=== PATIENT | female | born 1975 | race African-American/Black ===

== ENCOUNTER 2016-07-28 18:43 | Emergency (ER) | payer OTHER ==
[2016-07-28] MEDS ORDERED: Lidocaine 1% w/Epinephrine 1:100K 20 ML VIAL ONE (20:13)
--- NOTE | 2016-07-28 21:02 | ERRECORD ---
[facility] EMERGENCY RECORD HPI ABSCESS (22:31 JOHE) CHIEF COMPLAINT: Patient presents for evaluation of swelling, Patient presents for evaluation of pain. HISTORIAN: History provided by patient, Pt. reports left chest wall (near axilla) swelling/abscess that has developed and become more painful over last 2 days. Also reports left ear pain and drainage over past week. No F&C, N&V, headache, vision changes, CP or other symptoms. Reports BP elevated because she is in pain. LOCATION: Symptoms are localized, most severe to left chest wall. QUALITY: Pain is dull in nature, described as throbbing. SEVERITY: Maximum severity of symptoms moderate, Currently symptoms are moderate. TIME COURSE: Gradual onset of symptoms, 2, days priror to arrival, Symptoms are worsening, are constant. ASSOCIATED WITH: No associated chills, No associated drainage, No associated fever, No associated nausea, No associated proximal streaking, No associated warmth, Denies any other complaints. COMPLICATING FACTORS: Complicating factors for wound healing include:, patient with history of diabetes. EXACERBATED BY: Patient's condition exacerbated by nothing. RELIEVED BY: Patient's condition relieved by nothing because patient has not tried anything for relief. TETANUS: Tetanus status up to date. ROS (22:33 JOHE) CONSTITUTIONAL: Historian denies chills, denies fever, denies malaise. EYES: Historian denies eye pain, denies eye redness, denies photophobia, denies vision changes. ENT: Historian reports otalgia, reports otorrhea, denies rhinorrhea, denies sinus pain, denies sore throat, denies voice changes. CARDIOVASCULAR: Historian denies chest pain, denies diaphoresis, denies dyspnea on exertion, denies syncope, denies palpitations. RESPIRATORY: Historian denies cough, denies shortness of breath, denies wheezing. GI: Historian denies abdominal pain, denies nausea, denies vomiting. GENITOURINARY FEMALE: Historian denies dysuria, denies frequency, denies hematuria. MUSCULOSKELETAL: Historian denies arthralgias, denies back pain, denies myalgias, denies neck pain. SKIN: Historian reports skin lesions. NEUROLOGIC: Historian denies confusion, denies dizziness, denies focal weakness, denies gait changes, denies headache, denies paresthesias. HEMO/LYMPHATIC: Historian denies abnormal blood clotting, denies easy bruising, denies petechiae. NOTES: All systems reviewed, negative except as described above. &a-1R&a+25V*p+0X*g1896J*c202B*c15G*c2P*p-0X&a-25V&a+1R Name: Rose Mary Jain : 1975 F41 MedRec: [id number] AcctNum: [id number] Prepared: SunJul 28, 2016 22:43 by Interface Page 1 of 4 pMD [facility] EMERGENCY RECORD PAST MEDICAL HISTORY (18:50 EPIE) MEDICAL HISTORY: Past medical history includes history of obesity, includes cardiac history, unspecified arrhythmia, includes history of diabetes, Type II, includes history of hypertension. FEMALE SURGICAL HISTORY: Surgical history of hysterectomy, Date of surgery 10/27/2015, Surgical history of section. PSYCHIATRIC HISTORY: No previous psychiatric history. SOCIAL HISTORY: Patient denies alcohol use, Patient denies drug use, Patient has no smoking history,. KNOWN ALLERGIES No Known Drug Allergies CURRENT MEDICATIONS (18:49 EPIE) metFORMIN: TABLET : Strength - 500 mg : ORAL Patient Dose: Oral once a day.unknown dose. meTOPROLOL tartrate: TABLET : Strength - 100 mg : ORAL Patient Dose: Oral once a day (in the morning).unknown dose. lisinopril-hydrochlorothiazide: TABLET : Strength - 10 mg-12.5 mg : ORAL Patient Dose: Oral once a day (in the morning).unknown dose. VITAL SIGNS VITAL SIGNS: Pulse: 83, Resp: 20 (Non-Labored), Temp: 99.8 (Oral), Pain: 6, O2 sat: 97 on Room Air, Time: 07/28/2016 18:47. (18:47 EPIE) BP: 210/124, Time: 07/28/2016 18:50. (18:50 EPIE) BP: 174/104, Pulse: 69, Resp: 18 (Non-Labored), O2 sat: 98 on Room Air, Time: 07/28/2016 19:36. (19:36 EPIE) BP: 168/98, Pulse: 68, Resp: 18 (Non-Labored), Temp: 99.6 (Oral), Pain: 4, O2 sat: 97 on Room Air, Time: 07/28/2016 20:40. (20:40 EPIE) PHYSICAL EXAM (22:34 JOHE) CONSTITUTIONAL: Vital signs reviewed, Patient appears non toxic, Patient alert and oriented to person, place and time. HEAD: Head exam normal, Head exam included findings of head atraumatic, normocephalic. EYES: Eye exam normal, Eye exam included findings of eyelids normal to inspection, Pupils equally round and reactive to light, Extraocular muscles intact, Conjunctiva normal. ENT: Pharynx exam normal, not injected, no swelling, symmetrical, Uvula exam normal, midline, no edema, Mouth exam normal, mucous membranes moist, no drooling, no lesions, no lacerations, no tongue elevation, RIght ear canal and TM normal, left ear canal swollen and edematous, TM obscured due to swelling. No mastoid swelling or &a-1R&a+25V*p+0X*v5337K*c202B*c15G*c2P*p-0X&a-25V&a+1R Name: Rose Mary Jain : 1975 F41 MedRec: [id number] AcctNum: [id number] Prepared: SunJul 28, 2016 22:43 by Interface Page 2 of 4 pMD [facility] EMERGENCY RECORD tenderness. NECK: Neck exam normal, Neck exam included findings of normal range of motion, Trachea midline, no carotid bruits. RESPIRATORY CHEST: Respiratory exam included findings of no respiratory distress, Breath sounds clear, No wheezing, No rales, No rhonchi, Breath sounds not absent, Breath sounds not diminished. CARDIOVASCULAR: Cardiovascular assessment normal, Cardiovascular exam included findings of heart rate regular rate and rhythm, Heart sounds normal, Carotids normal, Pedal pulses normal. ABDOMEN FEMALE: Abdominal exam normal, Abdominal exam included findings of abdomen nontender, no distension, no pulsatile masses, no peritoneal signs, no rigidity, no guarding, no rebound. NEURO: Neuro exam normal, [place] coma scale 15, Neuro exam findings include patient oriented to person, place and time, Speech normal, Gait normal, Cranial nerves intact, no focal motor deficits, no focal sensory deficits. SKIN: Skin exam included findings of skin warm, dry, and normal in color, Patient has a 6X3 cm area of fluctuance and tenderness without overlying erythema or warmth on the left gerson-lateral chest wall near the axilla. DOCTOR NOTES (22:36 JOHE) TEXT: Note: chart completed after patient discharge. I&D performed with large amount of serosanguinous fluid obtained. Cavity probed afterwards, and packed with 1/4 inch iodoform. No active bleeding noted afterwards. BP improved. Discussed treatment for abscess and otitis externa, need to take packing out within 48 hours. Discussed need to take BP medications and f/u with PCP closely to recheck BP, and discussed warning signs for immediate return to ED. PROBLEM LIST No recorded problems DIAGNOSIS (20:34 JOHE) FINAL: PRIMARY: abscess of chest wall, ADDITIONAL: left otitis externa. PRESCRIPTION clindamycin HCl: CAPSULE : 300 mg : ORAL : Quantity: 1 Unit: cap(s) Route: ORAL Schedule: 3 times a day Dispense: 21 Unit: cap(s) May substitute. Refills: No Refills . (20:35 JOHE) NOTES: No Refills. (20:35 JOHE) Ciprodex: SUSPENSION, DROPS(FINAL DOSAGE FORM)(ML) : 0.3 %-0.1 % : OTIC : Quantity: 4 Unit: Drps Route: OTIC Schedule: 2 times a day Dispense: 1 Unit: Tube May substitute. Refills: No Refills . (20:36 JOHE) NOTES: 4 drops to left ear twice daily X 7 days No Refills. (20:36 JOHE) &a-1R&a+25V*p+0X*k1960Q*c202B*c15G*c2P*p-0X&a-25V&a+1R Name: Rose Mary Jain Fabiola : 1975 F41 MedRec: [id number] AcctNum: [id number] Prepared: SunJul 28, 2016 22:43 by Interface Page 3 of 4 pMD [facility] EMERGENCY RECORD acetaminophen-codeine: TABLET : 300 mg-30 mg : ORAL : Quantity: 1 Unit: tab(s) Route: ORAL Schedule: every 4 hours prn Dispense: 15 Unit: tab(s) May substitute. Refills: No Refills . (20:37 NOEL) NOTES: No Refills. (20:37 NOEL) DISPOSITION PATIENT: Disposition Type: Discharge, Disposition: *Discharge Home, Condition: Good. (20:37 JANESSAE) Patient left the department. (20:54 EPIE) Marroquin: SANYA=JESSICA Dela Cruz, Key COHEN=MD Woo, Saman &a-1R&a+25V*p+0X*g1899I*c202B*c15G*c2P*p-0X&a-25V&a+1R Name: Rose Mary Jain : 1975 F41 MedRec: [id number] AcctNum: [id number] Prepared: SunJul 28, 2016 22:43 by Interface Page 4 of 4 pMD MTDD
--- NOTE | 2016-07-28 21:08 | PICIS ---
[facility] EMERGENCY RECORD TRIAGE (SunJul 28, 2016 18:49 EPIE) TRIAGE NOTES: Pt reports abscess to left axilla she noticed on Sunday. Reports no drainage. (SunJul 28, 2016 18:49 EPIE) PATIENT: NAME: Rose Mary Jain, AGE: 41, GENDER: female, : Sun1975, TIME OF GREET: SunJul 28, 2016 18:44, PREFERRED LANGUAGE: [place]i, ETHNICITY: Not or , ECODE BILLING MAP: [facility], SSN: [id number], Zip Code: [address], KG WEIGHT: [phone], PHONE: , , , PERSON ID: [id number], PCP: Kathie, Clinic. (SunJul 28, 2016 18:49 EPIE) COMPLAINT: ABSCESS. (SunJul 28, 2016 18:49 EPIE) ADMISSION: URGENCY: 4 Non Urgent, ADMISSION SOURCE: Home, TRANSPORT: CAR, BED: TRIAGE. (SunJul 28, 2016 18:49 EPIE) TRIAGE SCREENING: Patient denies suicidal ideation, Patient denies presence of domestic violence. (18:50 EPIE) TREATMENTS IN PROGRESS: Treatments given Prehospital: none. (18:50 EPIE) PROVIDERS: TRIAGE NURSE: Key Dela Cruz RN. (SunJul 28, 2016 18:49 EPIE) VITAL SIGNS: Pulse 83, Resp 20, (Non-Labored), Temp 99.8, (Oral), Pain 6, O2 Sat 97, on Room Air, Time 07/28/2016 18:47. (18:47 EPIE) PREVIOUS VISIT ALLERGIES: No Known Drug Allergies. (SunJul 28, 2016 18:49 EPIE) No Known Drug Allergies. (18:50 EPIE) KNOWN ALLERGIES No Known Drug Allergies CURRENT MEDICATIONS (18:49 EPIE) metFORMIN: TABLET : Strength - 500 mg : ORAL Patient Dose: Oral once a day.unknown dose. meTOPROLOL tartrate: TABLET : Strength - 100 mg : ORAL Patient Dose: Oral once a day (in the morning).unknown dose. lisinopril-hydrochlorothiazide: TABLET : Strength - 10 mg-12.5 mg : ORAL Patient Dose: Oral once a day (in the morning).unknown dose. VITAL SIGNS VITAL SIGNS: Pulse: 83, Resp: 20 (Non-Labored), Temp: 99.8 (Oral), Pain: 6, O2 sat: 97 on Room Air, Time: 07/28/2016 18:47. (18:47 EPIE) BP: 210/124, Time: 07/28/2016 18:50. (18:50 EPIE) BP: 174/104, Pulse: 69, Resp: 18 (Non-Labored), O2 sat: 98 on Room Air, Time: 07/28/2016 19:36. (19:36 EPIE) BP: 168/98, Pulse: 68, Resp: 18 (Non-Labored), Temp: 99.6 (Oral), Pain: 4, O2 sat: 97 on Room Air, Time: 07/28/2016 20:40. (20:40 EPIE) &a-1R&a+25V*p+0X*f9937Q*c202B*c15G*c2P*p-0X&a-25V&a+1R Name: Rose Mary Jain : 1975 F41 MedRec: [id number] AcctNum: [id number] Prepared: SunJul 28, 2016 22:49 by Interface Page 1 of 6 pMD [facility] EMERGENCY RECORD NURSING ASSESSMENT: SKIN (19:35 EPIE) CONSTITUTIONAL: Patient arrives ambulatory, Gait steady, History obtained from patient, Patient appears comfortable, Patient cooperative, Patient alert, Oriented to person, place and time, Skin warm, Skin dry, Skin normal in color, Mucous membranes pink, Mucous membranes moist, Patient is well-groomed, Pt reports abscess to left axilla she noticed on Sunday. Reports no drainage. PAIN: throbbing pain, left axilla, Onset of pain 07/25/2016 19:35, constant, on a scale 0-10 patient rates pain as 6. SKIN: Skin assessment findings include skin warm, Skin dry, Skin normal in color, Notes: Pt has abscess to left axilla no drainage. 3cm by 3cm will slight redness. NURSING PROCEDURE: DISCHARGE NOTE (20:45 EPIE) DISCHARGE: Patient discharged to home, ambulating without assistance, driving self, unaccompanied, Summary of Care printed/ provided, Discharge instructions given to patient, Simple or moderate discharge teaching performed, Prescriptions given and instructions on side effects given, Name of prescription(s) given: clindamycin, ciprodex, acetaminophen-codeine, Above person(s) verbalized understanding of discharge instructions and follow-up care. BELONGINGS: Belongings and valuables with patient upon arrival to the Emergency Department include:, Belongings and valuables with patient at time of discharge include:, Belongings remain with patient, Valuables remain with patient. NURSING PROCEDURE: INCISION AND DRAINAGE (20:20 EPIE) PATIENT IDENTIFIER: Patient actively involved in identification process, Patient's identity verified by patient stating name, Patient's identity verified by hospital ID bracelet. TIMEOUT: Prior to procedure, correct patient verified by, patient stating name, patient stating date, hospital identification bracelet, Correct procedure verified, Correct site verified, Correct equipment utilized, Physician performing procedure Dr. Woo GALLO, Witnessed by Key LOPEZ. I & D: Incision and drainage performed to the left axilla, by Dr. Woo GALLO, small amount, of purulent fluid drained, Simple dressing applied, using telfa pad, packed with 1/4 inch iodoform packing, Last tetanus shot received less than 5 years ago, Notes: wound packed with 1/4 idodoform. ORDER DETAILS Order Name: chart element #1, Status: Active, Time: 20:20 07/28/2016, User: System, - Ordered for: MD Woo, Saman, - Entered by: JESSICA Dela Cruz Emily - SunJul 28, 2016 20:20, &a-1R&a+25V*p+0X*c7509A*c202B*c15G*c2P*p-0X&a-25V&a+1R Name: Rose Mary Jain : 1975 F41 MedRec: [id number] AcctNum: [id number] Prepared: SunJul 28, 2016 22:49 by Interface Page 2 of 6 pMD [facility] EMERGENCY RECORD - Quantity: 1, Order Name: chart element #4, Status: Active, Time: 20:20 07/28/2016, User: System, - Ordered for: MD Woo, Saman, - Entered by: JESSICA Dela Cruz Key - SunJul 28, 2016 20:20, - Quantity: 1. HPI ABSCESS (22:31 [facility]) CHIEF COMPLAINT: Patient presents for evaluation of swelling, Patient presents for evaluation of pain. HISTORIAN: History provided by patient, Pt. reports left chest wall (near axilla) swelling/abscess that has developed and become more painful over last 2 days. Also reports left ear pain and drainage over past week. No F&C, N&V, headache, vision changes, CP or other symptoms. Reports BP elevated because she is in pain. LOCATION: Symptoms are localized, most severe to left chest wall. QUALITY: Pain is dull in nature, described as throbbing. SEVERITY: Maximum severity of symptoms moderate, Currently symptoms are moderate. TIME COURSE: Gradual onset of symptoms, 2, days priror to arrival, Symptoms are worsening, are constant. ASSOCIATED WITH: No associated chills, No associated drainage, No associated fever, No associated nausea, No associated proximal streaking, No associated warmth, Denies any other complaints. COMPLICATING FACTORS: Complicating factors for wound healing include:, patient with history of diabetes. EXACERBATED BY: Patient's condition exacerbated by nothing. RELIEVED BY: Patient's condition relieved by nothing because patient has not tried anything for relief. TETANUS: Tetanus status up to date. ROS (22:33 [facility]) CONSTITUTIONAL: Historian denies chills, denies fever, denies malaise. EYES: Historian denies eye pain, denies eye redness, denies photophobia, denies vision changes. ENT: Historian reports otalgia, reports otorrhea, denies rhinorrhea, denies sinus pain, denies sore throat, denies voice changes. CARDIOVASCULAR: Historian denies chest pain, denies diaphoresis, denies dyspnea on exertion, denies syncope, denies palpitations. RESPIRATORY: Historian denies cough, denies shortness of breath, denies wheezing. GI: Historian denies abdominal pain, denies nausea, denies vomiting. GENITOURINARY FEMALE: Historian denies dysuria, denies frequency, denies hematuria. MUSCULOSKELETAL: Historian denies arthralgias, denies back pain, denies myalgias, denies neck pain. &a-1R&a+25V*p+0X*x8839Q*c202B*c15G*c2P*p-0X&a-25V&a+1R Name: Rose Mary Jain : 1975 F41 MedRec: [id number] AcctNum: [id number] Prepared: SunJul 28, 2016 22:49 by Interface Page 3 of 6 pMD [facility] EMERGENCY RECORD SKIN: Historian reports skin lesions. NEUROLOGIC: Historian denies confusion, denies dizziness, denies focal weakness, denies gait changes, denies headache, denies paresthesias. HEMO/LYMPHATIC: Historian denies abnormal blood clotting, denies easy bruising, denies petechiae. NOTES: All systems reviewed, negative except as described above. PAST MEDICAL HISTORY (18:50 EPIE) MEDICAL HISTORY: Past medical history includes history of obesity, includes cardiac history, unspecified arrhythmia, includes history of diabetes, Type II, includes history of hypertension. FEMALE SURGICAL HISTORY: Surgical history of hysterectomy, Date of surgery 10/27/2015, Surgical history of section. PSYCHIATRIC HISTORY: No previous psychiatric history. SOCIAL HISTORY: Patient denies alcohol use, Patient denies drug use, Patient has no smoking history,. PHYSICAL EXAM (22:34 JOHE) CONSTITUTIONAL: Vital signs reviewed, Patient appears non toxic, Patient alert and oriented to person, place and time. HEAD: Head exam normal, Head exam included findings of head atraumatic, normocephalic. EYES: Eye exam normal, Eye exam included findings of eyelids normal to inspection, Pupils equally round and reactive to light, Extraocular muscles intact, Conjunctiva normal. ENT: Pharynx exam normal, not injected, no swelling, symmetrical, Uvula exam normal, midline, no edema, Mouth exam normal, mucous membranes moist, no drooling, no lesions, no lacerations, no tongue elevation, RIght ear canal and TM normal, left ear canal swollen and edematous, TM obscured due to swelling. No mastoid swelling or tenderness. NECK: Neck exam normal, Neck exam included findings of normal range of motion, Trachea midline, no carotid bruits. RESPIRATORY CHEST: Respiratory exam included findings of no respiratory distress, Breath sounds clear, No wheezing, No rales, No rhonchi, Breath sounds not absent, Breath sounds not diminished. CARDIOVASCULAR: Cardiovascular assessment normal, Cardiovascular exam included findings of heart rate regular rate and rhythm, Heart sounds normal, Carotids normal, Pedal pulses normal. ABDOMEN FEMALE: Abdominal exam normal, Abdominal exam included findings of abdomen nontender, no distension, no pulsatile masses, no peritoneal signs, no rigidity, no guarding, no rebound. NEURO: Neuro exam normal, [place] coma scale 15, Neuro exam findings include patient oriented to person, place and time, Speech normal, Gait normal, Cranial nerves intact, no focal motor deficits, no focal sensory deficits. SKIN: Skin exam included findings of skin warm, dry, and normal in color, Patient has a 6X3 cm area of fluctuance and tenderness without overlying erythema or warmth on the left gerson-lateral chest &a-1R&a+25V*p+0X*y3208G*c202B*c15G*c2P*p-0X&a-25V&a+1R Name: Rose Mary Jain : 1975 F41 MedRec: [id number] AcctNum: [id number] Prepared: SunJul 28, 2016 22:49 by Interface Page 4 of 6 pMD [facility] EMERGENCY RECORD wall near the axilla. EVENTS TRANSFER: Triage to Emergency Triage. (SunJul 28, 2016 18:49 EPIE) Emergency Triage to Emergency Room -05. (18:49 EPIE) Removed from Emergency Emergency Room -05. (20:54 EPIE) DOCTOR NOTES (22:36 JOHE) TEXT: Note: chart completed after patient discharge. I&D performed with large amount of serosanguinous fluid obtained. Cavity probed afterwards, and packed with 1/4 inch iodoform. No active bleeding noted afterwards. BP improved. Discussed treatment for abscess and otitis externa, need to take packing out within 48 hours. Discussed need to take BP medications and f/u with PCP closely to recheck BP, and discussed warning signs for immediate return to ED. INCISION AND DRAINAGE (20:33 JOHE) TIMEOUT: Side and/or site verified, Patient identification confirmed, Sterile procedures observed. INCISION AND DRAINAGE: Side and/or site verified, Patient identification confirmed, Sterile procedures observed, Verbal consent obtained, Incision and drainage indicated for cutaneous abscess, There are no contraindications, 1% Lidocaine with epinephrine used, 6 mLs, Incision and drainage of skin abscess, Location: left chest wall, simple, Incision was made over area of fluctuance, Explored for loculations, Packed with sterile gauze, Drained serosanguinous, Amount (mLs) 20, After procedure, wound dressed, After procedure, neurovascular status normal, There were no complications, Tetanus status up to date, Patient tolerated the procedure well. PROBLEM LIST No recorded problems DIAGNOSIS (20:34 JOHE) FINAL: PRIMARY: abscess of chest wall, ADDITIONAL: left otitis externa. DISPOSITION PATIENT: Disposition Type: Discharge, Disposition: *Discharge Home, Condition: Good. (20:37 JOHE) Patient left the department. (20:54 EPIE) INSTRUCTION (20:37 JOHE) DISCHARGE: ABSCESS, I AND D, OTITIS EXTERNA ADULT, HYPERTENSION, ESTABLISHED, OUT OF CONTROL. FOLLOWUP: Kathie, Clinic, Clinic, [address] [place] [id number], , Follow up with Primary Care Physician in 1-2 days. &a-1R&a+25V*p+0X*k9113F*c202B*c15G*c2P*p-0X&a-25V&a+1R Name: Rose Mary Jain : 1975 F41 MedRec: [id number] AcctNum: [id number] Prepared: SunJul 28, 2016 22:49 by Interface Page 5 of 6 pMD [facility] EMERGENCY RECORD SPECIAL: Follow-up with your PCP. PRESCRIPTION clindamycin HCl: CAPSULE : 300 mg : ORAL : Quantity: 1 Unit: cap(s) Route: ORAL Schedule: 3 times a day Dispense: 21 Unit: cap(s) May substitute. Refills: No Refills . (20:35 JOHE) NOTES: No Refills. (20:35 JOHE) Ciprodex: SUSPENSION, DROPS(FINAL DOSAGE FORM)(ML) : 0.3 %-0.1 % : OTIC : Quantity: 4 Unit: Drps Route: OTIC Schedule: 2 times a day Dispense: 1 Unit: Tube May substitute. Refills: No Refills . (20:36 JOHE) NOTES: 4 drops to left ear twice daily X 7 days No Refills. (20:36 JOHE) acetaminophen-codeine: TABLET : 300 mg-30 mg : ORAL : Quantity: 1 Unit: tab(s) Route: ORAL Schedule: every 4 hours prn Dispense: 15 Unit: tab(s) May substitute. Refills: No Refills . (20:37 JOHE) NOTES: No Refills. (20:37 JOHE) IMAGING (20:53 EPIE) *DISCHARGE INSTRUCTIONS RECEIPT: Image captured from scanner. Page 2 added. Image captured from scanner. *SUPPLY CHARGE SHEET: Image captured from scanner. ADMIN (22:38 NOEL) DIGITAL SIGNATURE: MD Woo, Saman. Marroquin: EPIE=JESSICA Dela Cruz, Key NOEL=MD Berkowitz John &a-1R&a+25V*p+0X*a8076S*c202B*c15G*c2P*p-0X&a-25V&a+1R Name: Rose Mary Jain : 1975 F41 MedRec: [id number] AcctNum: [id number] Prepared: SunJul 28, 2016 22:49 by Interface Page 6 of 6 pMD MTDD
== END 2016-07-28 20:45 | disposition home or self-care (01) ==
LOC: NAV ERS 18:43
DX: L02.213 Cutaneous abscess of chest wall (principal); H60.92 Unspecified otitis externa, left ear; E11.9 Type 2 diabetes mellitus without complications; I10 Essential (primary) hypertension; Z79.84 Long term (current) use of oral hypoglycemic drugs
CPT/HCPCS: 10060; J2001

== ENCOUNTER 2016-07-31 19:59 | Emergency (ER) | payer OTHER ==
--- NOTE | 2016-07-31 20:43 | PICIS ---
[facility] EMERGENCY RECORD TRIAGE (SunJul 31, 2016 20:08 [facility]) TRIAGE NOTES: LEFT AXILLARY ABSCESS NEEDS TO BE REPACKED. I&D PERFORMED SUNDAY IN ED. (SunJul 31, 2016 20:08 [facility]) PATIENT: NAME: Rose Mary Jain, AGE: 41, GENDER: female, : Sun1975, TIME OF GREET: SunJul 31, 2016 20:00, PREFERRED LANGUAGE: [place], ETHNICITY: Not or , ECODE BILLING MAP: [facility] ER, SSN: [id number], Zip Code: [address], KG WEIGHT: 170.1 (est.), PHONE: , , , PERSON ID: [id number], PCP: TARYN . (SunJul 31, 2016 20:08 [facility]) COMPLAINT: WOUND CARE. (SunJul 31, 2016 20:08 [facility]) ADMISSION: URGENCY: 5 Fast Track, ADMISSION SOURCE: Home, TRANSPORT: CAR, BED: ER -05. (SunJul 31, 2016 20:08 [facility]) IMMUNIZATIONS: Flu vaccine not up to date, Tetanus immunization up to date, Pneumococcal vaccine not up to date. (20:09 [facility]) SIRS SCORING: Heart Rate 55-109 (0), Temp range 96.8-101.1 (0), respiratory rate 12-24 (0), Mental Status altered: no (0). (20:09 [facility]) TRIAGE SCREENING: Patient denies suicidal ideation, Patient denies presence of domestic violence. (20:09 [facility]) TREATMENTS IN PROGRESS: Treatments given Prehospital: NONE. (20:09 [facility]) PROVIDERS: TRIAGE NURSE: Penny Jj RN. (SunJul 31, 2016 20:08 [facility]) VITAL SIGNS: BP 172/112, Pulse 76, Resp 20, Temp 97.8, (Oral), Pain 6, O2 Sat 96, on Room Air, Time 07/31/2016 20:06. (20:06 [facility]) PREVIOUS VISIT ALLERGIES: No Known Drug Allergies. (SunJul 31, 2016 20:08 [facility]) No Known Drug Allergies. (20:09 [facility]) KNOWN ALLERGIES No Known Drug Allergies CURRENT MEDICATIONS (20:08 [facility]) metFORMIN: TABLET : Strength - 500 mg : ORAL Patient Dose: Oral once a day.unknown dose. meTOPROLOL tartrate: TABLET : Strength - 100 mg : ORAL Patient Dose: Oral once a day (in the morning).unknown dose. lisinopril-hydrochlorothiazide: TABLET : Strength - 10 mg-12.5 mg : ORAL Patient Dose: Oral once a day (in the morning).unknown dose. clindamycin HCl: CAPSULE : Strength - 300 mg : ORAL Patient Dose: 1 cap(s) Oral 3 times a day. Ciprodex: &a-1R&a+25V*p+0X*q0583L*c202B*c15G*c2P*p-0X&a-25V&a+1R Name: Rose Mary Jain : 1975 F41 MedRec: [id number] AcctNum: [id number] Prepared: SunJul 31, 2016 20:41 by Interface Page [address] [facility] EMERGENCY RECORD SUSPENSION, DROPS(FINAL DOSAGE FORM)(ML) : Strength - 0.3 %-0.1 % : OTIC Patient Dose: 4 Drps OTIC 2 times a day. acetaminophen-codeine: TABLET : Strength - 300 mg-30 mg : ORAL Patient Dose: 1 tab(s) Oral every 4 hours prn. VITAL SIGNS (20:06 [facility]) VITAL SIGNS: BP: 172/112, Pulse: 76, Resp: 20, Temp: 97.8 (Oral), Pain: 6, O2 sat: 96 on Room Air, Time: 07/31/2016 20:06. NURSING ASSESSMENT: SKIN (20:10 [facility]) CONSTITUTIONAL: Complex assessment performed, Patient arrives ambulatory, Gait steady, History obtained from patient, Patient appears comfortable, Patient cooperative, Patient alert, Oriented to person, place and time, Skin warm, Skin dry, Skin normal in color, Mucous membranes pink, Mucous membranes moist, Patient is well-groomed, Patient complains of ABSCESS REPACKING. PAIN: LEFT AXILLARY, on a scale 0-10 patient rates pain as 6. SKIN: Skin assessment findings include skin warm, Skin dry, Skin normal in color, Notes: ABSCESS TO LEFT AXILLARY. PACKING STRIPS IN PLACE THAT NEEDS TO BE CHANGED. SLIGHT SWELLING AND TENDERNESS. NURSING PROCEDURE: DISCHARGE NOTE (20:30 [facility]) DISCHARGE: Patient discharged to home, ambulating without assistance, driving self, unaccompanied, Summary of Care printed/ provided, Discharge instructions given to patient, Simple or moderate discharge teaching performed, by JESSICA Francis, CONTINUE TAKING ANTIBIOTICS AND DAILY HOME MEDS. FOLLOW UP WITH PCP OR IN ED FOR WOUND REPACKING IN THE NEXT FEW DAYS., Above person(s) verbalized understanding of discharge instructions and follow-up care. BELONGINGS: Belongings and valuables with patient upon arrival to the Emergency Department include:, Belongings and valuables with patient at time of discharge include:, Belongings remain with patient, Valuables remain with patient. HPI WOUND CHECK (20:24 [facility]) CHIEF COMPLAINT: Patient presents for evaluation of chest wound, abscess, closed with nothing, Wound is 3 days old, Patient presents for evaluation of Pt with I&D breast abscess 3 days ago. Here for packing removal. Still with drainage but less pain and swelling. No fever or nausea. HISTORIAN: History provided by patient. LOCATION: Symptoms are localized. TIME COURSE: Symptoms are improving. ASSOCIATED WITH: No associated chills, Associated with drainage, No associated fever, No associated proximal streaking, No associated redness. &a-1R&a+25V*p+0X*e0800L*c202B*c15G*c2P*p-0X&a-25V&a+1R Name: Rose Mary Jain : 1975 F41 MedRec: [id number] AcctNum: [id number] Prepared: SunJul 31, 2016 20:41 by Interface Page [address] [facility] EMERGENCY RECORD EXACERBATED BY: Patient's condition exacerbated by nothing. RELIEVED BY: Patient's condition relieved by prescription medications, Clindamycin. ROS (20:25 [facility]) CONSTITUTIONAL: Historian denies chills, denies fever. GI: Historian denies nausea, denies vomiting. SKIN: abscess s/p I&D. PAST MEDICAL HISTORY MEDICAL HISTORY: Past medical history includes history of obesity, includes cardiac history, unspecified arrhythmia, includes history of diabetes, Type II, includes history of hypertension. (20:09 [facility]) FEMALE SURGICAL HISTORY: Surgical history of hysterectomy, Date of surgery 10/27/2015, Surgical history of section. (20:09 [facility]) PSYCHIATRIC HISTORY: No previous psychiatric history. (20:09 [facility]) SOCIAL HISTORY: Patient denies alcohol use, Patient denies drug use, Patient has no smoking history,. (20:09 [facility]) NOTES: Nursing records reviewed, Agree with nursing records. (20:26 [facility]) PHYSICAL EXAM (20:25 [facility]) CONSTITUTIONAL: Vital signs reviewed, Patient appears non toxic, Patient alert and oriented to person, place and time. EYES: Eye exam included findings of eyelids normal to inspection, Pupils equally round and reactive to light, Conjunctiva normal. RESPIRATORY CHEST: Respiratory exam included findings of no respiratory distress, Chest exam included findings of chest movement symmetrical. NEURO: [place] coma scale 15, Neuro exam findings include patient oriented to person, place and time, Speech normal. SKIN: Skin exam included findings of skin warm, dry, and normal in color, Abscess with small purulent drainage, packing in place, minimal swelling, minimal tenderness, no warmth. PSYCHIATRIC: Normal affect. EVENTS TRANSFER: Triage to Emergency Emergency Room -05. (SunJul 31, 2016 20:08 [facility]) Removed from Emergency Emergency Room -05. (20:33 [facility]) WOUND CHECK (20:27 [facility]) WOUND CHECK: Side and/or site verified, Patient identification confirmed, Sterile procedures observed, Verbal consent obtained, Wound check indicated for scheduled evaluation, Wound check to abscess performed, to chest, Wound not closed, Wound age 3 days, Purulent drainage present, Patient tolerated the procedure &a-1R&a+25V*p+0X*r0255O*c202B*c15G*c2P*p-0X&a-25V&a+1R Name: Rose Mary Jain Fabiola : 1975 F41 MedRec: [id number] AcctNum: [id number] Prepared: SunJul 31, 2016 20:41 by Interface Page [address] [facility] EMERGENCY RECORD well, Re-packed with minimal discomfort. Instructions given. PROBLEM LIST No recorded problems DIAGNOSIS (20:23 [facility]) FINAL: PRIMARY: INDURATION OF BREAST. DISPOSITION PATIENT: Disposition Type: Discharge, Disposition: *Discharge Home. (20:23 [facility]) Patient left the department. (20:33 [facility]) INSTRUCTION (20:23 [facility]) DISCHARGE: ABSCESS, I AND D. FOLLOWUP: Follow up with Primary Care Physician in 2-3 days. PRESCRIPTION No recorded prescriptions ADMIN (20:27 [facility]) DIGITAL SIGNATURE: MD Reyna Joshua. Marroquin: [facility]=MD Reyna Joshua [facility]=JESSICA Jj, Penny &a-1R&a+25V*p+0X*[id number]*c202B*c15G*c2P*p-0X&a-25V&a+1R Name: Rose Mary Jain : 1975 F41 MedRec: [id number] AcctNum: [id number] Prepared: SunJul 31, 2016 20:41 by Interface Page [address] [facility] MEDICATION RECONCILIATION You were seen in the Emergency Department on: SunJul 31, 2016 KNOWN ALLERGIES No Known Drug Allergies HOME MEDICATIONS CONTINUE PRESCRIBED acetaminophen-codeine : TABLET : Strength - 300 mg-30 mg : ORAL Continue as prescribed Patient had been takin tab(s) Oral every 4 hours prn. Ciprodex : SUSPENSION, DROPS(FINAL DOSAGE FORM)(ML) : Strength - 0.3 %-0.1 % : OTIC Continue as prescribed Patient had been takin Drps OTIC 2 times a day. clindamycin HCl : CAPSULE : Strength - 300 mg : ORAL Continue as prescribed Patient had been takin cap(s) Oral 3 times a day. lisinopril-hydrochlorothiazide : TABLET : Strength - 10 mg-12.5 mg : ORAL Continue as prescribed Patient had been taking: Oral once a day (in the morning). Comment: unknown dose. metFORMIN : TABLET : Strength - 500 mg : ORAL Continue as prescribed Patient had been taking: Oral once a day. Comment: unknown dose. meTOPROLOL tartrate : TABLET : Strength - 100 mg : ORAL Continue as prescribed Patient had been taking: Oral once a day (in the morning). Comment: unknown dose. &a-1R&a+25V*p+0X*m0153N*c202B*c15G*c2P*p-0X&a-25V&a+1R Name: Rose Mary Jain : 1975 F41 MedRec: [id number] AcctNum: [id number] Prepared: SunJul 31, 2016 20:41 by Interface Kelly ROUSSEAU
--- NOTE | 2016-07-31 20:43 | ERRECORD ---
[facility] EMERGENCY RECORD HPI WOUND CHECK (20:24 [facility]) CHIEF COMPLAINT: Patient presents for evaluation of chest wound, abscess, closed with nothing, Wound is 3 days old, Patient presents for evaluation of Pt with I&D breast abscess 3 days ago. Here for packing removal. Still with drainage but less pain and swelling. No fever or nausea. HISTORIAN: History provided by patient. LOCATION: Symptoms are localized. TIME COURSE: Symptoms are improving. ASSOCIATED WITH: No associated chills, Associated with drainage, No associated fever, No associated proximal streaking, No associated redness. EXACERBATED BY: Patient's condition exacerbated by nothing. RELIEVED BY: Patient's condition relieved by prescription medications, Clindamycin. ROS (20:25 [facility]) CONSTITUTIONAL: Historian denies chills, denies fever. GI: Historian denies nausea, denies vomiting. SKIN: abscess s/p I&D. PAST MEDICAL HISTORY MEDICAL HISTORY: Past medical history includes history of obesity, includes cardiac history, unspecified arrhythmia, includes history of diabetes, Type II, includes history of hypertension. (20:09 [facility]) FEMALE SURGICAL HISTORY: Surgical history of hysterectomy, Date of surgery 10/27/2015, Surgical history of section. (20:09 [facility]) PSYCHIATRIC HISTORY: No previous psychiatric history. (20:09 [facility]) SOCIAL HISTORY: Patient denies alcohol use, Patient denies drug use, Patient has no smoking history,. (20:09 [facility]) NOTES: Nursing records reviewed, Agree with nursing records. (20:26 [facility]) KNOWN ALLERGIES No Known Drug Allergies CURRENT MEDICATIONS (20:08 [facility]) metFORMIN: TABLET : Strength - 500 mg : ORAL Patient Dose: Oral once a day.unknown dose. meTOPROLOL tartrate: TABLET : Strength - 100 mg : ORAL Patient Dose: Oral once a day (in the morning).unknown dose. lisinopril-hydrochlorothiazide: TABLET : Strength - 10 mg-12.5 mg : ORAL Patient Dose: Oral once a day (in the morning).unknown dose. &a-1R&a+25V*p+0X*q5901V*c202B*c15G*c2P*p-0X&a-25V&a+1R Name: Rose Mary Jain : 1975 1 MedRec: [id number] AcctNum: [id number] Prepared: SunJul 31, 2016 20:41 by Interface Page 1 of 2 pMD [facility] EMERGENCY RECORD clindamycin HCl: CAPSULE : Strength - 300 mg : ORAL Patient Dose: 1 cap(s) Oral 3 times a day. Ciprodex: SUSPENSION, DROPS(FINAL DOSAGE FORM)(ML) : Strength - 0.3 %-0.1 % : OTIC Patient Dose: 4 Drps OTIC 2 times a day. acetaminophen-codeine: TABLET : Strength - 300 mg-30 mg : ORAL Patient Dose: 1 tab(s) Oral every 4 hours prn. VITAL SIGNS (20:06 [facility]) VITAL SIGNS: BP: 172/112, Pulse: 76, Resp: 20, Temp: 97.8 (Oral), Pain: 6, O2 sat: 96 on Room Air, Time: 07/31/2016 20:06. PHYSICAL EXAM (20:25 [facility]) CONSTITUTIONAL: Vital signs reviewed, Patient appears non toxic, Patient alert and oriented to person, place and time. EYES: Eye exam included findings of eyelids normal to inspection, Pupils equally round and reactive to light, Conjunctiva normal. RESPIRATORY CHEST: Respiratory exam included findings of no respiratory distress, Chest exam included findings of chest movement symmetrical. NEURO: [place] coma scale 15, Neuro exam findings include patient oriented to person, place and time, Speech normal. SKIN: Skin exam included findings of skin warm, dry, and normal in color, Abscess with small purulent drainage, packing in place, minimal swelling, minimal tenderness, no warmth. PSYCHIATRIC: Normal affect. PROBLEM LIST No recorded problems DIAGNOSIS (20:23 [facility]) FINAL: PRIMARY: INDURATION OF BREAST. PRESCRIPTION No recorded prescriptions DISPOSITION PATIENT: Disposition Type: Discharge, Disposition: *Discharge Home. (20:23 [facility]) Patient left the department. (20:33 [facility]) Marroquin: ENA=MD Axel, Mir [facility]=JESSICA Jj, Penny &gwen-1R&a+25V*p+0X*[id number]*c202B*c15G*c2P*p-0X&a-25V&a+1R Name: Rose Mary Jain Fabiola : 1975 1 MedRec: [id number] AcctNum: [id number] Prepared: Gregoria Jul 31, 2016 20:41 by Interface Page 2 of 2 pMD [facility]
== END 2016-07-31 20:30 | disposition home or self-care (01) ==
LOC: NAV ERS 19:59
DX: N64.51 Induration of breast (principal); I10 Essential (primary) hypertension; E11.9 Type 2 diabetes mellitus without complications; Z79.84 Long term (current) use of oral hypoglycemic drugs; Z79.2 Long term (current) use of antibiotics; Z79.899 Other long term (current) drug therapy
CPT/HCPCS: 99282

== ENCOUNTER 2016-08-03 16:27 | Emergency (ER) | payer OTHER | END 2016-08-03 16:57 | disposition home or self-care (01) | LOC: NAV ERS 16:27 | DX: L02.412 Cutaneous abscess of left axilla (principal); I10 Essential (primary) hypertension; E11.9 Type 2 diabetes mellitus without complications; Z79.84 Long term (current) use of oral hypoglycemic drugs; Z79.2 Long term (current) use of antibiotics; Z79.899 Other long term (current) drug therapy | CPT/HCPCS: 99282 ==

== ENCOUNTER 2016-08-07 19:56 | Emergency (ER) | payer OTHER ==
[2016-08-07] MEDS ORDERED: Bacitracin Zinc 1 Packet ONE (20:21)
== END 2016-08-07 20:29 | disposition home or self-care (01) ==
LOC: NAV ERS 19:56
DX: L02.412 Cutaneous abscess of left axilla (principal); I10 Essential (primary) hypertension; E11.9 Type 2 diabetes mellitus without complications; Z79.84 Long term (current) use of oral hypoglycemic drugs; Z79.2 Long term (current) use of antibiotics; Z79.899 Other long term (current) drug therapy
CPT/HCPCS: 99283

== ENCOUNTER 2017-03-08 04:21 | Emergency (ER) | payer OTHER ==
[2017-03-08] MEDS ORDERED: Ibuprofen 800 MG TAB ONE (04:39)
[2017-03-08] MEDS ORDERED: Cephalexin 250 MG CAP ONE (04:39)
== END 2017-03-08 05:10 | disposition home or self-care (01) ==
LOC: NAV ERS 04:21
DX: L02.422 Furuncle of left axilla (principal); L98.9 Disorder of the skin and subcutaneous tissue, unspecified; E66.9 Obesity, unspecified; E11.9 Type 2 diabetes mellitus without complications; Z79.84 Long term (current) use of oral hypoglycemic drugs; Z79.899 Other long term (current) drug therapy
CPT/HCPCS: 99283

== ENCOUNTER 2017-03-10 07:16 | Emergency (ER) | payer OTHER | END 2017-03-10 07:45 | disposition home or self-care (01) | LOC: NAV ERS 07:16 | DX: L02.412 Cutaneous abscess of left axilla (principal); E66.9 Obesity, unspecified; E11.9 Type 2 diabetes mellitus without complications; I10 Essential (primary) hypertension; I49.9 Cardiac arrhythmia, unspecified; Z79.899 Other long term (current) drug therapy; Z79.84 Long term (current) use of oral hypoglycemic drugs | CPT/HCPCS: 99282 ==

== ENCOUNTER 2017-03-13 18:14 | Emergency (ER) | payer OTHER | END 2017-03-13 18:43 | disposition home or self-care (01) | LOC: NAV ERS 18:14 | DX: L02.412 Cutaneous abscess of left axilla (principal); I10 Essential (primary) hypertension; E11.9 Type 2 diabetes mellitus without complications; Z79.84 Long term (current) use of oral hypoglycemic drugs; Z79.899 Other long term (current) drug therapy; Z79.2 Long term (current) use of antibiotics | CPT/HCPCS: 99282 ==

== ENCOUNTER 2017-06-04 12:24 | Emergency (ER) | payer OTHER ==
[2017-06-04] MEDS ORDERED: Ibuprofen 800 MG TAB ONE (12:51)
[2017-06-04] MEDS ORDERED: Oseltamivir 75 MG CAP ONE (13:22)
== END 2017-06-04 13:27 | disposition home or self-care (01) ==
LOC: NAV ERS 12:24
DX: J10.1 Influenza due to other identified influenza virus with other respiratory manifestations (principal); I49.9 Cardiac arrhythmia, unspecified; I10 Essential (primary) hypertension; E11.9 Type 2 diabetes mellitus without complications; Z79.84 Long term (current) use of oral hypoglycemic drugs; Z79.82 Long term (current) use of aspirin; Z79.899 Other long term (current) drug therapy
CPT/HCPCS: 99283

== ENCOUNTER 2017-09-22 06:40 | Emergency (ER) | payer OTHER ==
[2017-09-22] MEDS ORDERED: Lidocaine 1% 20 ML MDV ONE (07:14)
[2017-09-22] MEDS ORDERED: Cephalexin 250 MG CAP ONE (07:46)
== END 2017-09-22 07:49 | disposition home or self-care (01) ==
LOC: NAV ERS 06:40
DX: L02.11 Cutaneous abscess of neck (principal); I10 Essential (primary) hypertension; I49.9 Cardiac arrhythmia, unspecified; E66.9 Obesity, unspecified; E11.9 Type 2 diabetes mellitus without complications; Z79.82 Long term (current) use of aspirin; Z79.84 Long term (current) use of oral hypoglycemic drugs; Z79.899 Other long term (current) drug therapy
CPT/HCPCS: 10060; J2001

== ENCOUNTER 2017-09-24 13:49 | Emergency (ER) | payer OTHER | END 2017-09-24 14:33 | disposition home or self-care (01) | LOC: NAV ERS 13:49 | DX: Z48.817 Encounter for surgical aftercare following surgery on the skin and subcutaneous tissue (principal); I10 Essential (primary) hypertension; I49.9 Cardiac arrhythmia, unspecified; E11.9 Type 2 diabetes mellitus without complications; Z79.82 Long term (current) use of aspirin; Z79.84 Long term (current) use of oral hypoglycemic drugs; Z79.899 Other long term (current) drug therapy | CPT/HCPCS: 99282 ==

== ENCOUNTER 2017-09-27 20:42 | Emergency (ER) | payer OTHER | END 2017-09-27 21:06 | disposition home or self-care (01) | LOC: NAV ERS 20:42 | DX: Z48.817 Encounter for surgical aftercare following surgery on the skin and subcutaneous tissue (principal); I10 Essential (primary) hypertension; E11.9 Type 2 diabetes mellitus without complications; Z48.01 Encounter for change or removal of surgical wound dressing; Z79.84 Long term (current) use of oral hypoglycemic drugs; Z79.82 Long term (current) use of aspirin; Z79.899 Other long term (current) drug therapy | CPT/HCPCS: 99282 ==

== ENCOUNTER 2017-09-30 17:38 | Emergency (ER) | payer OTHER | END 2017-09-30 18:00 | disposition home or self-care (01) | LOC: NAV ERS 17:38 | DX: Z48.817 Encounter for surgical aftercare following surgery on the skin and subcutaneous tissue (principal); I10 Essential (primary) hypertension; E66.9 Obesity, unspecified; E11.9 Type 2 diabetes mellitus without complications; Z79.899 Other long term (current) drug therapy; Z79.84 Long term (current) use of oral hypoglycemic drugs; Z79.82 Long term (current) use of aspirin | CPT/HCPCS: 99282 ==

== ENCOUNTER 2017-11-30 16:24 | Emergency (ER) | payer OTHER ==
[2017-11-30] MEDS ORDERED: Lidocaine 1% 20 ML MDV ONE (16:34)
[2017-11-30] MEDS ORDERED: Sulfameth/Trimethoprim DS 800-160mg TAB ONE (16:36)
[2017-11-30] MEDS ORDERED: Cephalexin 250 MG CAP ONE (16:47)
== END 2017-11-30 16:57 | disposition home or self-care (01) ==
LOC: NAV ERS 16:24
DX: L02.11 Cutaneous abscess of neck (principal); I10 Essential (primary) hypertension; E11.9 Type 2 diabetes mellitus without complications; I49.9 Cardiac arrhythmia, unspecified; E66.9 Obesity, unspecified; Z79.899 Other long term (current) drug therapy; Z79.82 Long term (current) use of aspirin; Z79.84 Long term (current) use of oral hypoglycemic drugs
CPT/HCPCS: 10060; J2001

== ENCOUNTER 2017-12-02 15:13 | Emergency (ER) | payer OTHER | END 2017-12-02 15:33 | disposition home or self-care (01) | LOC: NAV ERS 15:13 | DX: Z48.817 Encounter for surgical aftercare following surgery on the skin and subcutaneous tissue (principal); Z48.01 Encounter for change or removal of surgical wound dressing; E11.9 Type 2 diabetes mellitus without complications; I10 Essential (primary) hypertension; I49.9 Cardiac arrhythmia, unspecified; Z79.84 Long term (current) use of oral hypoglycemic drugs; Z79.82 Long term (current) use of aspirin; Z79.899 Other long term (current) drug therapy | CPT/HCPCS: 99282 ==

== ENCOUNTER 2017-12-04 18:36 | Emergency (ER) | payer OTHER | END 2017-12-04 19:04 | disposition home or self-care (01) | LOC: NAV ERS 18:36 | DX: Z48.817 Encounter for surgical aftercare following surgery on the skin and subcutaneous tissue (principal); I10 Essential (primary) hypertension; E11.9 Type 2 diabetes mellitus without complications; Z79.899 Other long term (current) drug therapy; Z79.82 Long term (current) use of aspirin; Z79.84 Long term (current) use of oral hypoglycemic drugs | CPT/HCPCS: 99282 ==

== ENCOUNTER 2018-04-21 21:31 | Emergency (ER) | payer OTHER ==
[2018-04-21] MEDS ORDERED: Ondansetron PF 4 MG/2 ML Vial ONE (22:00)
[2018-04-21] MEDS ORDERED: Nitroglycerin 0.4 MG TAB (25 Tab Bottle) ONE (22:00)
[2018-04-21 22:19] LABS: Band 1 % (5-11); Eosinophils 2 % (0-10); Hemoglobin 14.4 g/dL (12.0-16.0); Lymphocytes 43 % (21-51); MDiff Complete? YES; Mean Corpuscular HGB CONC 30.9 g/dL (32.0-36.0); Mean Corpuscular Hemoglobin 26.3 pg (27.0-31.0); Mean Corpuscular Volume 85.2 fL (78.0-98.0); Mean Platelet Volume 8.6 fL (7.4-10.4); Monocytes 6 % (0-10); Neutrophil 48 % (42-75); PLT Morphology Comment Appears Adequate; Platelet Count 300 thou/uL (130-400); RBC Morphology Normal; Red Blood Cell (RBC) Count 5.47 mill/uL (4.20-5.40); White Blood Cell (WBC) Count 9.2 thou/uL (4.8-10.8)
[2018-04-21 22:20] LABS: CKMB 0.4 ng/mL (0-6.6); Troponin I Less than 0.010 ng/mL (< 0.028)
[2018-04-21 22:22] LABS: ALT (SGPT) 22 U/L (8-55); AST (SGOT) 16 U/L (5-34); Albumin 3.6 g/dL (3.5-5.0); Alkaline Phosphatase 95 U/L (40-150); Anion Gap 16 mmol/L (10-20); BUN (Urea Nitrogen) 8 mg/dL (7.0-18.7); Bilirubin, Total 0.3 mg/dL (0.2-1.2); Calc. Creatinine Clearance 0 mL/min (70-130); Calcium 9.8 mg/dL (7.8-10.44); Carbon Dioxide 27 mmol/L (22-29); Chloride 99 mmol/L (98-107); Estimated GFR-MDRD 90; Globulin 4.6 g/dL (2.4-3.5); Glucose 241 mg/dL (70-105); Lipase 59 U/L (8-78); Magnesium 2.2 mg/dL (1.6-2.6); Potassium 3.9 mmol/L (3.5-5.1); Protein, Total 8.2 g/dL (6.0-8.3); Sodium 138 mmol/L (136-145)
--- NOTE | 2018-04-21 22:38 | RAD ---
CHEST TWO VIEWS: History: Chest pain Comparison: 04-21-18 FINDINGS: Cardiac silhouette is unremarkable. Pulmonary vasculature upper limits of normal. Mediastinum is midl ine. No lobar consolidation, pneumothorax or pleural fluid. IMPRESSION: No active cardiopulmonary abnormalities are demonstrated. POS: [facility]
== END 2018-04-21 23:42 | disposition short-term general hospital (02) ==
LOC: NAV ERS 21:31
DX: R07.9 Chest pain, unspecified (principal); I10 Essential (primary) hypertension; E11.9 Type 2 diabetes mellitus without complications; I49.9 Cardiac arrhythmia, unspecified; Z79.84 Long term (current) use of oral hypoglycemic drugs; Z79.82 Long term (current) use of aspirin; Z79.899 Other long term (current) drug therapy
CPT/HCPCS: 36415; 71046; 80053; 82553; 83690; 83735; 84484; 85025; 93005; 94760; 96374; 96375; J2270; J2405

== ENCOUNTER 2022-02-20 14:09 | Emergency (ER) | payer OTHER ==
[2022-02-20] MEDS ORDERED: Lidocaine 1% (PF) 30 ML VIAL ONE (14:35)
== END 2022-02-20 15:28 | disposition home or self-care (01) ==
LOC: NAV ERS 14:09
DX: L02.211 Cutaneous abscess of abdominal wall (principal); I10 Essential (primary) hypertension; E11.9 Type 2 diabetes mellitus without complications; Z79.899 Other long term (current) drug therapy
CPT/HCPCS: 10060; 87070; 87205; J2001

== ENCOUNTER 2022-03-16 15:16 | Emergency (ER) | payer OTHER, SELFPAY | END 2022-03-16 16:30 | disposition home or self-care (01) | LOC: NAV ERS 15:16 | DX: M17.12 Unilateral primary osteoarthritis, left knee (principal); M25.562 Pain in left knee; E11.9 Type 2 diabetes mellitus without complications; I10 Essential (primary) hypertension; Z79.899 Other long term (current) drug therapy; Z79.84 Long term (current) use of oral hypoglycemic drugs | CPT/HCPCS: 99283 ==